=== PATIENT | female | born 1985 | race American Indian/Alaskan Native ===

== ENCOUNTER 2020-01-07 01:19 | Emergency (ER) | payer OTHER ==
[2020-01-07 03:29] VITALS: BP 137/91
[2020-01-07] MEDS ORDERED: IBUPROFEN 800 MG TAB PO ONE (04:29)
[2020-01-07] MEDS ORDERED: CLINDAMYCIN 300 MG CAP PO ONE (04:30)
--- NOTE | 2020-01-07 04:33 | Emergency Department Report ---
ED ENT HPI - General Chief complaint: Dental/Oral Stated complaint: ABCESS OF THE MOUTH Time Seen by Provider: 01/07/20 04:01 Source: patient Mode of arrival: Ambulatory Limitations: No Limitations - History of Present Illness Initial comments: The patient was evaluated in the emergency department for symptoms described in the history of present illness. He/she was evaluated in the context of the global COVID-19 pandemic, which necessitated consideration that the patient might be at risk for infection with the virus that causes COVID-19. Instituti onal protocols and algorithms that pertain to the evaluation of patients at risk for COVID-19 are in a state of rapid change based on information released by regulatory bodies including the CDC and federal and state organizations. These policies and algorithms were followed during the patient's care in the emergency department. Please note that these policies, procedures and recommendations changed on a rapid basis. 34-year-old -[place] female presents to the emergency room complaining of a boil to her left roof of mouth x1 day. Patient reports that it is painful to eat. She denies any fever chills no nausea no vomiting. She reports she has a dental appointment on January 22. Patient denies any past medical history currently takes no medications on a daily basis and has no known drug allergies. Onset/Timin -: days(s) Location: other (Roof of mouth) Severity: severe Severity scale (0 -10): 10 Quality: aching, sharp Improves with: none Worsens with: eating - Related Data Previous Rx's Medication Instructions Recorded Last Taken Type Clindamycin [Clindamycin CAP] 300 mg PO Q8H 10 Days #30 capsule 01/07/20 Unknown Rx Ibuprofen [Motrin 800 MG tab] 800 mg PO Q8HR PRN #30 tablet 01/07/20 Unknown Rx Allergies Allergy/AdvReac Type Severity Reaction Status Date / Time No Known Allergies Allergy Unverified 01/07/20 03:35 ED Dental HPI - General Chief complaint: Dental/Oral Stated complaint: ABCESS OF THE MOUTH Time Seen by Provider: 01/07/20 04:01 Source: patient Mode of arrival: Ambulatory Limitations: No Limitations - Related Data Previous Rx's Medication Instructions Recorded Last Taken Type Clindamycin [Clindamycin CAP] 300 mg PO Q8H 10 Days #30 capsule 01/07/20 Unknown Rx Ibuprofen [Motrin 800 MG tab] 800 mg PO Q8HR PRN #30 tablet 01/07/20 Unknown Rx Allergies Allergy/AdvReac Type Severity Reaction Status Date / Time No Known Allergies Allergy Unverified 01/07/20 03:35 ED Review of Systems ROS: Stated complaint: ABCESS OF THE MOUTH Other details as noted in HPI Comment: All other systems reviewed and negative ED Past Medical Hx - Past Medical History Previous Medical History?: No - Surgical History Past Surgical History?: No - Social History Smoking Status: Never Smoker Substance Use Type: None - Medications Home Medications: Home Medications Medication Instructions Recorded Confirmed Last Taken Type Clindamycin [Clindamycin CAP] 300 mg PO Q8H 10 Days #30 capsule 01/07/20 Unknown Rx Ibuprofen [Motrin 800 MG tab] 800 mg PO Q8HR PRN #30 tablet 01/07/20 Unknown Rx ED Physical Exam - General Limitations: No Limitations General appearance: alert, in no apparent distress - Head Head exam: Present: atraumatic, normocephalic - ENT ENT exam: Present: mucous membranes moist - Expanded ENT Exam Expanded Mouth exam: Present: other (Left upper roof abscess) - Neck Neck exam: Present: normal inspection, full ROM - Respiratory Respiratory exam: Absent: accessory muscle use - Cardiovascular Cardiovascular Exam: Present: regular rate, normal rhythm. Absent: systolic murmur, diastolic murmur, rubs, gallop - Back Exam Back exam: Present: normal inspection - Neurological Exam Neurological exam: Present: alert, oriented X3 - Psychiatric Psychiatric exam: Present: normal affect, normal mood - Skin Skin exam: Present: warm, dry, intact, normal color. Absent: rash ED Course Vital Signs 01/07/20 03:21 Temperature 98.7 F Pulse Rate 86 Respiratory 16 Rate Blood Pressure 137/91 O2 Sat by Pulse 100 Oximetry ED Medical Decision Making - Medical Decision Making 34-year-old -[place] female presents to the emergency room complaining of a boil to her left roof of mouth x1 day. Patient reports that it is painful to eat. She denies any fever chills no nausea no vomiting. She reports she has a dental appointment on January 22. Patient denies any past medical history currently takes no medications on a daily basis and has no known drug allergies. Patient will be given ibuprofen and clindamycin in ER visit will be discharged home on clindamycin 300 mg 3 times daily ibuprofen 800 mg 3 times a day. Instructed to increase her water intake and follow-up with a dentist. Critical care attestation.: If time is entered above; I have spent that time in minutes in the direct care of this critically ill patient, excluding procedure time. ED Disposition Clinical Impression: Hard palate abscess Disposition: TO HOME OR SELFCARE Is pt being admited?: No Does the pt Need Aspirin: No Condition: Stable Instructions: Dental Abscess Additional Instructions: Complete antibiotics as prescribed. Take pain medication as needed. Follow-up with a dentist. Prescriptions: Clindamycin [Clindamycin CAP] 300 mg PO Q8H 10 Days #30 capsule Ibuprofen [Motrin 800 MG tab] 800 mg PO Q8HR PRN #30 tablet PRN Reason: Pain , Severe (7-10) Referrals: KIRK WEEMS MD [Primary Care Provider] - 3-5 Days Forms: Work/School Release Form(ED)
== END 2020-01-07 05:20 | disposition home or self-care (01) ==
LOC: ED 01:19
DX: M27.2 Inflammatory conditions of jaws (principal)
CPT/HCPCS: 99282

== ENCOUNTER 2020-02-01 04:43 | Emergency (ER) | payer OTHER ==
[2020-02-01 09:55] VITALS: BP 117/71
--- NOTE | 2020-02-01 10:01 | Emergency Department Report ---
- General Chief Complaint: Back Pain/Injury Stated Complaint: COUGH/BACK PAIN Time Seen by Provider: 02/01/20 09:53 Source: patient Mode of arrival: Ambulatory Limitations: No Limitations - History of Present Illness Initial Comments: 34-year-old -[place] female presents to the emergency room complaining of cough and back pain since Thursday. Patient states pain woke her up from her sleep. Patient reports that her back pain is worse with deep inspiratory breaths. She denies any fever but reports night sweats. Denies any weight loss or Haemophilus. Patient has not tried any ypbl-ikk-aaeckry medications. She admits to sore throat and diarrhea. Covid test is pending. Patient does not have a primary care provider. She has no known drug allergies currently takes no meds on a daily basis has no past medical history and has an IUD in for control. MD Complaint: cough, sore throat Onset/Timin -: days(s) Severity: moderate Quality: sharp Consistency: intermittent Improves With: nothing Worsens With: deep breaths Associated Symptoms: sore throat, cough, right sweats. denies: shortness of breath Treatments Prior to Arrival: none - Related Data Previous Rx's Medication Instructions Recorded Last Taken Type Clindamycin [Clindamycin CAP] 300 mg PO Q8H 10 Days #30 capsule 01/07/20 Unknown Rx Ibuprofen [Motrin 800 MG tab] 800 mg PO Q8HR PRN #30 tablet 01/07/20 Unknown Rx Allergies Allergy/AdvReac Type Severity Reaction Status Date / Time No Known Allergies Allergy Unverified 01/07/20 03:35 ED Review of Systems ROS: Stated complaint: COUGH/BACK PAIN Other details as noted in HPI Comment: All other systems reviewed and negative ED Past Medical Hx - Past Medical History Previous Medical History?: No - Surgical History Past Surgical History?: No - Social History Smoking Status: Never Smoker Substance Use Type: Alcohol - Medications Home Medications: Home Medications Medication Instructions Recorded Confirmed Last Taken Type Clindamycin [Clindamycin CAP] 300 mg PO Q8H 10 Days #30 capsule 01/07/20 Unknown Rx Ibuprofen [Motrin 800 MG tab] 800 mg PO Q8HR PRN #30 tablet 01/07/20 Unknown Rx ED Physical Exam - General Limitations: No Limitations General appearance: alert, in no apparent distress - Head Head exam: Present: atraumatic, normocephalic - Eye Eye exam: Present: normal appearance, PERRL - ENT ENT exam: Present: mucous membranes moist - Respiratory Respiratory exam: Present: normal lung sounds bilaterally. Absent: respiratory distress - Cardiovascular Cardiovascular Exam: Present: regular rate, normal rhythm. Absent: systolic murmur, diastolic murmur, rubs, gallop - GI/Abdominal GI/Abdominal exam: Present: soft, normal bowel sounds - Extremities Exam Extremities exam: Present: normal inspection - Neurological Exam Neurological exam: Present: alert, oriented X3, normal gait - Psychiatric Psychiatric exam: Present: normal affect, normal mood - Skin Skin exam: Present: warm, dry, intact, normal color. Absent: rash ED Course Vital Signs 02/01/20 04:48 Temperature 98.7 F Pulse Rate 81 Respiratory 17 Rate Blood Pressure 117/71 O2 Sat by Pulse 98 Oximetry ED Medical Decision Making - Radiology Data Radiology results: [place] [id number] XRay Report Signed Patient: RY TOLENTINO MR#: [id number] : 1985 Acct:[id number] Age/Sex: 34 / F ADM Date: 02/01/20 Loc: ED Attending Dr: Ordering Physician: RUBY WILKINS Date of Service: 02/01/20 Procedure(s): XR chest routine 2V Accession Number(s): [id number] cc: RUBY WILKINS Fluoro Time In Minutes: XR chest routine 2V INDICATION / CLINICAL INFORMATION: Chest tightness and pain with deep breath. COMPARISON: None available. FINDINGS: SUPPORT DEVICES: None. HEART /PULMONARY VASCULATURE: No significant abnormality. LUNGS / PLEURA: No significant pulmonary or pleural abnormality. No pneumothorax. ADDITIONAL FINDINGS: No significant additional findings. IMPRESSION: 1. No acute findings. Signer Name: Jose Angel Baig MD Signed: 02/01/2020 10:10 AM Workstation Name: [id number] Transcribed By: CYN Dictated By: JOSE ANGEL BAIG MD Electronically Authenticated By: JOSE ANGEL BAIG MD Signed Date/Time: 02/01/20 1010 DD/ 1010 TD/TT: - Medical Decision Making 34-year-old -[place] female presents to the emergency room complaining of cough and back pain since Thursday. Patient states pain woke her up from her sleep. Patient reports that her back pain is worse with deep inspiratory breaths. She denies any fever but reports night sweats. Denies any weight loss or Haemophilus. Patient has not tried any tlom-pml-lhjjnhp medications. She admits to sore throat and diarrhea. Covid test is pending. Patient does not have a primary care provider. She has no known drug allergies currently takes no meds on a daily basis has no past medical history and has an IUD in for control. Chest x-ray is negative for any concerns. Recommend ibuprofen or Tylenol. Recommend [id number]-beu-myvyksn Robitussin. Follow-up with the primary care provider. Critical care attestation.: If time is entered above; I have spent that time in minutes in the direct care of this critically ill patient, excluding procedure time. ED Disposition Clinical Impression: Cough, Back pain Disposition: DC- TO HOME OR SELFCARE Is pt being admited?: No Does the pt Need Aspirin: No Condition: Stable Additional Instructions: Chest x-ray is negative for any concerns. Recommend ibuprofen or Tylenol. Recommend [id number] Robitussin. Follow-up with the primary care provider. Referrals: PRIMARY CAREMD [Primary Care Provider] - 3-5 Days [facility] [Provider Group] - 3-5 Days Forms: Work/School Release Form(ED)
--- NOTE | 2020-02-01 10:15 | XRay Report ---
XR chest routine 2V INDICATION / CLINICAL INFORMATION: Chest tightness and pain with deep breath. COMPARISON: None available. FINDINGS: SUPPORT DEVICES: None. HEART /PULMONARY VASCULATURE: No significant abnormality. LUNGS / PLEURA: No significant pulmonary or pleural abnormality. No pneumothorax. ADDITIONAL FINDINGS: No significant additional findings. IMPRESSION: 1. No acute findings. Signer Name: Daniel Cadet MD Signed: 02/01/2020 10:10 AM Workstation Name: [id number]
== END 2020-02-01 12:32 | disposition home or self-care (01) ==
LOC: ED 04:43
DX: M54.9 Dorsalgia, unspecified (principal); R05 Cough; Z79.899 Other long term (current) drug therapy
CPT/HCPCS: 71046; 99283